=== PATIENT | male | born 1995 | race American Indian/Alaskan Native ===

== ENCOUNTER 2018-01-02 19:58 | Emergency (ER) | payer MEDICAID ==
[2018-01-02 20:43] VITALS: BP 123/71
[2018-01-02] MEDS ORDERED: MOTRIN PO ONE (20:44)
--- NOTE | 2018-01-02 23:27 | XRay Report ---
FINAL REPORT PROCEDURE: XR CHEST ROUTINE 2V TECHNIQUE: PA and lateral chest radiographs were obtained. CPT 67462 HISTORY: fever and cough COMPARISON: No prior studies are available for comparison. FINDINGS: Heart: Normal. Mediastinum/Vessels: Normal. Lungs/Pleural space: Normal. Bony thorax: No acute osseous abnormality. Other: IMPRESSION: Normal examination.
--- NOTE | 2018-01-03 03:52 | Emergency Department Report ---
Minor Respiratory - HPI Chief Complaint: Upper Respiratory Infection Stated Complaint: FLU SYMPTOMS Time Seen by Provider: 01/03/18 03:46 Duration: 2 Days Severity: moderate Minor Respiratory: Yes Rhinorrhea, Yes Sore Throat, Yes Able to Tolerate Fluids , Yes Cough, Yes Sick Contacts, Yes Fever, No Ear Pain, No Hemoptysis, No Chest Pain, No Shortness of Breath Other History: This is a 22 y.o. male presents with cough, runny nose, fever, and bodyaches for 2 days. Patient states he is weak and can barely hold his head up. He took cold and flu medicine for 1 day with minimal improvement. Denies chest pain, SOB, nausea, vomiting, and abdominal pain. ED Review of Systems ROS: Stated complaint: FLU SYMPTOMS Other details as noted in HPI Constitutional: chills, fever ENT: denies: ear pain, throat pain Respiratory: cough. denies: shortness of breath, SOB with exertion, SOB at rest , stridor, wheezing Cardiovascular: denies: chest pain, palpitations Gastrointestinal: denies: abdominal pain, nausea, diarrhea Musculoskeletal: as per HPI, myalgia (generalized body aches) Neurological: denies: headache, weakness, paresthesias ED Past Medical Hx - Past Medical History Previous Medical History?: No - Surgical History Past Surgical History?: No - Social History Smoking Status: Current Every Day Smoker Substance Use Type: Marijuana - Medications Home Medications: Home Medications Medication Instructions Recorded Confirmed Last Taken Type Benzonatate 200 mg PO TID PRN #30 capsule 01/03/18 Unknown Rx Cetirizine HCl [Zyrtec] 10 mg PO DAILY #30 tablet 01/03/18 Unknown Rx Oseltamivir [Tamiflu] 75 mg PO BID 5 Days #10 cap 01/03/18 Unknown Rx Minor Respiratory Exam - Exam General: Vital signs noted. No distress. Alert and acting appropriately. HEENT: Yes Pharyngeal Erythema, Yes Moist Mucous Membranes, Yes Rhinorrhea, No Pharyngeal Exudates, No Conjuctival Injection, No Frontal Tenderness, No Maxillary Tenderness Ear: Neither TM Bulge, Neither TM Erythema, Neither EAC Pain, Neither EAC Discharge Neck: Yes Supple, No Adenopathy Lungs: Yes Good Air Exchange, Yes Cough, No Wheezes, No Ronchi, No Stridor, No Labored Respirations, No Retractions, No Use of Accessory Muscles, No Other Abnormal Lung Sounds Heart: Yes Regular, No Murmur Abdomen: Yes Normal Bowel Sounds, No Tenderness, No Peritoneal Signs Skin: No Rash, No Edema Neurologic: Alert and oriented, no deficits. Musculoskeletal: Unremarkable. ED Course Vital Signs 01/02/18 01/03/18 20:39 03:32 Temperature 100.1 F H 98.6 F Pulse Rate 104 H 84 Respiratory 16 18 Rate Blood Pressure 123/71 O2 Sat by Pulse 99 98 Oximetry ED Medical Decision Making - Medical Decision Making This is a 22 y.o. male that presents with cough, rhinorrhea, fever, and body aches for 2 days. Patient is stable and examined by me. Tolerating fluids, appetite decreased. Given motrin once in ER. Temperature is trending down. Patient tolerating oral fluids in ER. Obtained rapid influenza. Positive for influenza B. Treat outpatient with supportive care. Discussed plan of care with patient. He agreed with plan. Discharged home in stable condition. Prescription for tamiflu, benzonate, ceterizine. F/U with PCP. Critical care attestation.: If time is entered above; I have spent that time in minutes in the direct care of this critically ill patient, excluding procedure time. ED Disposition Clinical Impression: Influenza B Disposition: DC-01 TO HOME OR SELFCARE Is pt being admited?: No Does the pt Need Aspirin: No Condition: Stable Instructions: Influenza (ED) Additional Instructions: Avoid large crowds to prevent transmission of virus. Increase fluid intake to prevent dehydration. Wash hands frequently. Take tylenol or ibuprofen every 4-6 hours for relief of headache, fever, and body aches. Return to school after 24 hours fever free. Follow up with PCP in 4-5 days if symptoms are not improving. Prescriptions: Benzonatate 200 mg PO TID PRN #30 capsule PRN Reason: Cough Cetirizine HCl [Zyrtec] 10 mg PO DAILY #30 tablet Oseltamivir [Tamiflu] 75 mg PO BID 5 Days #10 cap Referrals: [facility] [Outside] - 3-5 Days [facility] [Outside] - 3-5 Days [facility] [Outside] - 3-5 Days Time of Disposition: 03:57 Print Language: MALAY
== END 2018-01-03 04:03 | disposition home or self-care (01) ==
LOC: ED 19:58
DX: J11.1 Influenza due to unidentified influenza virus with other respiratory manifestations (principal); F17.200 Nicotine dependence, unspecified, uncomplicated; F12.10 Cannabis abuse, uncomplicated
CPT/HCPCS: 71046; 87400; 99283